=== PATIENT | female | born 1975 | race Caucasian/White ===

== ENCOUNTER → 2017-01-10 | Outpatient (CLI) | payer BC, OTHER ==
--- NOTE | 2017-01-11 13:16 | MAM ---
EXAM DESCRIPTION: 3D Screening BILATERAL CLINICAL HISTORY: 41 yearsFemaleSCREENING no complaints. No family history of breast cancer. Premenopausal. Current user of [employer]. COMPARISON: Baseline study at this facility. No prior reports available. TECHNIQUE: Bilateral digital screening. CC and MLO projection full-field, 2-D images. Bilateral Sunita implant displacement images, CC and MLO full-field projections, 3-D tomosynthesis. FINDINGS: The breast parenchymal density pattern is: Almost entirely fatty. Scattered areas of fibroglandular density. Heterogeneously dense breast tissue, which may obscure small masses. Extremely dense breast tissue, which lowers the sensitivity of mammography. No skin thickening or nipple retraction bilaterally. Bilateral subpectoral saline implants. Implant borders are intact where seen. Intramammary lymph node right axillary tail. Bilateral solitary microcalcifications. Focal asymmetry in the posterior third of the upper-outer quadrant of the right breast. 1000 clock position, approximately 3 cm from the skin surface and 6 cm from the nipple. Not associated with microcalcifications. No focal, stellate mass or density and no suspicious microcalcifications left breast. IMPRESSION: BI-RADS CATEGORY: 0 - INCOMPLETE- Need additional imaging evaluation. FOLLOW-UP: Recall for additional imaging: Targeted ultrasound of the region of interest in the posterior third of the upper-outer quadrant of the right breast. Written communication concerning the IMPRESSION and Follow-up, will be mailed to the patient and referring health care provider. Electronically signed by: Shawn Hdez MD 01/11/2017 1:14 PM CDT
== END | disposition home or self-care (01) ==
LOC: MAMMO 13:02
PROVIDERS: ATTEND Nurse Practitioner Family
DX: Z12.31 Encounter for screening mammogram for malignant neoplasm of breast (principal)
CPT/HCPCS: 77063; G0202

== ENCOUNTER → 2017-03-04 | Outpatient (CLI) | payer BC ==
--- NOTE | 2017-03-05 14:04 | US ---
EXAM DESCRIPTION: Breast,Right: Ultrasound CLINICAL HISTORY: 41 yearsFemaleABNORMAL MAMMO COMPARISON: Digital 3-D tomosynthesis screening bilateral breasts 01/10/2017. TECHNIQUE: Transcutaneous scanning of the upper outer quadrant right breast utilizing two-dimensional and Doppler modes. Scanning performed by the adoption social worker and Dr. Hdez. FINDINGS: Hypoechoic nodule nodule with minimal heterogeneity at the 1000 clock position of the upper outer quadrant of the right breast, 6 cm from the nipple. The nodule has parallel orientation relatively well-defined smooth borders and minimal or no posterior acoustic enhancement. Dimensions are 7.0 x 5.2 mm, and no significant vascularity. Most likely intramammary lymph node or fibroadenoma. No other discrete solid lesions or discrete cyst. No skin thickening or parenchymal edema. No large calcifications. IMPRESSION: BI-RADS CATEGORY: 3 - PROBABLY BENIGN. Management: Short interval (6-month) follow-up ultrasound and continued digital mammographic 6 month surveillance. The FINDINGS and the follow-up plan were reviewed in person with the patient after the examination. Written communication explaining the IMPRESSION and follow-up will be mailed to the patient and referring care provider. Electronically signed by: Shawn Hdez MD 03/05/2017 2:03 PM GOPHERMAN
== END | disposition home or self-care (01) ==
LOC: US 13:33
PROVIDERS: ATTEND Nurse Practitioner Family
DX: R92.8 Other abnormal and inconclusive findings on diagnostic imaging of breast (principal)

== ENCOUNTER → 2017-07-02 | Outpatient (CLI) | payer BC ==
--- NOTE | 2017-07-02 11:50 | MRI ---
EXAM: Cervical Spine HISTORY: CERVICAL RADICULOPATHY COMPARISON: None TECHNIQUE: Routine MRI protocol for cervical spine without intravenous contrast administration FINDINGS: Bony alignment at craniocervical and atlantooccipital junctions, including atlantoaxial interval, are maintained. There is maintained cervical lordosis. Vertebral heights are intact without compression injury. No spondylolysis nor spondylolisthesis is identified. Marrow signal characteristics are mildly heterogeneous without concerning edema to indicate acute/recent injury nor inflammation nor marrow infiltration. Facet joints demonstrate unremarkable alignment bilaterally. Spinous processes are intact. Cervical cord is morphologically unremarkable in appearance without focal expansile nor atrophic process, nor abnormal signal abnormality. Paraspinal soft tissue abnormality are within normal limits. At C2-3 level, disc height is maintained. Central canal and neuroforamen bilaterally are patent. At C3-4 level, disc height is maintained. Less than 1 mm of posterior disc herniation which subtly impact the ventral thecal margin without impacting the ventral cord. Central canal and neuroforamen bilaterally are patent. At C4-5 level, disc height is maintained. Central canal and neuroforamen bilaterally are patent. At C5-6 level, disc height is maintained. Approximately 1 mm of posterior disc extrusion broadly by minimally flatten the ventral thecal margin and slightly extending toward lateral recesses. Central canal and neuroforamen bilaterally are patent. At C6-7 level, disc height is maintained. Central canal and right neuroforamen are patent. Uncovertebral hypertrophy contributes to mild left neuroforaminal stenosis. As C7-T1 level, disc height is maintained. Central canal and neuroforamen bilaterally are patent. IMPRESSION: 1. No acute or recent bony injury in cervical spine 2. No extrinsic compression nor myelomalacia nor demyelination in the cervical cord. 3. Minimal posterior disc herniation or extrusion at C3-4 and C5-C6 levels. No significant associated central canal stenosis at these or other levels in cervical spine 4. Mild stenosis of left C6-7 neuroforamen Electronically signed by: Nam Duarte MD 07/02/2017 11:49 AM [facility]
--- NOTE | 2017-07-02 11:50 | MRI ---
Study: MRI of the Right Shoulder. Indication: SHOULDER PAIN Technique: Multiplanar, multi sequence MRI of the right shoulder was obtained without intravenous contrast. Comparison: None. Findings: Mild AC joint osteoarthritis. Type I acromion with mild lateral downsloping. Trace subacromial/subdeltoid bursal fluid. Supraspinatus and infraspinatus tendinosis and bursal surface fraying of both tendon insertions noted. Subtle articular fraying of the critical zone infraspinatus tendon. No full-thickness tear. No tendon retraction. Subscapularis tendinosis with low-grade interstitial fissuring superiorly. Teres minor tendon intact. Rotator cuff musculature normal without atrophy, fatty infiltration, or intramuscular edema. Intracapsular long head biceps tendinosis. Circumferential labral truncation superimposed on high-grade tearing bicipital labral anchor and superior labrum indicating a SLAP tear. No acute fracture or advanced glenohumeral joint osteoarthritis. Tiny joint effusion. Impression: Supraspinatus and infraspinatus tendinosis with bursal and articular fraying as above. No full-thickness tear. Intracapsular long head biceps tendinosis. Circumferential labral truncation with superimposed SLAP tear. Tiny glenohumeral joint effusion. Mild AC joint osteoarthritis. Electronically signed by: Virgil Hernandez MD 07/02/2017 11:45 AM [employer]
== END ==
LOC: MRI 10:05
PROVIDERS: ATTEND Family Medicine
DX: S43.431A Superior glenoid labrum lesion of right shoulder, initial encounter (principal); M19.011 Primary osteoarthritis, right shoulder; M48.02 Spinal stenosis, cervical region; M54.2 Cervicalgia

== ENCOUNTER → 2017-08-15 | Outpatient (CLI) | payer BC | LOC: GMAJ 14:18 | PROVIDERS: ATTEND Family Medicine | DX: B18.1 Chronic viral hepatitis B without delta-agent (principal) ==

== ENCOUNTER → 2018-01-28 | Outpatient (CLI) | payer BC ==
--- NOTE | 2018-01-28 21:03 | US ---
EXAM DESCRIPTION: Breast,Right: Ultrasound CLINICAL HISTORY: 42 yearsFemaleABN MAMMO, 6 MOS F/U COMPARISON: Digital diagnostic tomosynthesis bilateral breast on this visit. . Targeted right breast ultrasound 03/04/2017. TECHNIQUE: Transcutaneous scanning of the right breast utilizing burch-scale and Doppler modes. Scanning performed by the front desk associate and Dr. Hdez. FINDINGS: Scanning of the upper-outer quadrant of the right breast. Emphasis on the 10:00 position 6 cm from the nipple. Mostly heterogeneous fibroglandular and fatty echotexture. Again noted at the 10:00 position is a circumscribed hypoechoic mass measuring 7.4 x 5.6 mm with parallel orientation and mixed posterior features. No significant posterior shadowing. Small blood vessel abutting the mass which is most likely a fibroadenoma and is stable since the prior study. No other solid mass or distinct cyst. No large calcifications or parenchymal edema. No overlying skin changes. No abnormal vascularity. IMPRESSION: Benign fibroadenoma. ASSESSMENT: 1. Bi-Rads Category 2: Benign. 2. Please refer to digital diagnostic tomosynthesis bilateral breast examination and report on this visit.. The FINDINGS and the FOLLOW-UP plan were reviewed in person with the patient after the examination. Written communication explaining the IMPRESSION and FOLLOW-UP will be mailed to the patient and referring care provider. Electronically signed by: Shawn Hdez MD 01/28/2018 9:02 PM CDT
--- NOTE | 2018-01-30 09:06 | MAM ---
EXAM DESCRIPTION: 3D Diagnostic, Bilateral: Digital Mammography CLINICAL HISTORY: 42 yearsFemaleABN MAMMO, 6 MONTH F/U patient did not return for six-month follow-up. No complaints. No personal history or family history of breast cancer. Childbirth. Possible. Currently on Biote. Bilateral breast augmentation. Lifetime risk of developing breast cancer (Tyrer-Cuzick model) percentage was not calculated. COMPARISON: Digital screening bilateral breast tomosynthesis 01/10/2017. Targeted right breast ultrasound 03/04/2017. . TECHNIQUE: Bilateral CC LM MLO projection full-field images, with Sunita implant displacement images, digital mammographic tomosynthesis technique. Bilateral two-dimensional non-displacement images. CAD not utilized. FINDINGS: The breast parenchymal density pattern is: Heterogeneously dense breast tissue, which may obscure small masses. No skin thickening or nipple retraction lymph node in the right axillary tail. Focal asymmetry in the medial mid left breast is stable. No new focal, stellate mass or density, focal asymmetry , and no suspicious microcalcifications bilaterally. ULTRASOUND: Scanning of the lateral left breast with emphasis at the 3:00 position 8 cm from the nipple. Make sure of fibroglandular and fatty echotexture. Heterogeneous. Small ductal segments are present. No distinct solid mass or cyst. No parenchymal edema or large calcifications. No overlying skin changes. No abnormal vascularity. IMPRESSION: Benign fibroadenoma right breast is stable. ASSESSMENT: BIRAD CATEGORY: 2 BENIGN FINDINGS. RECOMMENDATIONS: FOLLOW UP: Routine digital bilateral screening, one year interval from January 2018. Repeat right breast ultrasound of the region of interest in January 2019. The FINDINGS and the FOLLOW-UP plan were reviewed in person with the patient after the examination. Written communication explaining the IMPRESSION and FOLLOW-UP will be mailed to the patient and referring care provider. According to the [employer], yearly mammograms are recommended starting at age 40 and continuing as long as a woman is in good health. Any breast change noted on a breast self-exam should be reported promptly to the patient's healthcare provider. Breast MRI is recommended for women with an approximately 20-25% or greater lifetime risk of breast cancer, including women with a strong family history of breast or ovarian cancer and women who have been treated for Hodgkin's disease. A negative mammographic report should not delay tissue diagnosis in patients with significant clinical history or physical findings. Extremely dense breast tissue limits the sensitivity of digital mammography. Electronically signed by: Shawn Hdez MD 01/30/2018 9:04 AM CDT
== END ==
LOC: MAMMO 14:10
PROVIDERS: ATTEND Family Medicine
DX: R92.8 Other abnormal and inconclusive findings on diagnostic imaging of breast (principal)
CPT/HCPCS: 76641; 77066; G0279

== ENCOUNTER → 2018-05-13 | Outpatient (CLI) | payer BC ==
--- NOTE | 2018-05-13 11:21 | US ---
EXAM DESCRIPTION: Abdomen,Complete: Ultrasound. CLINICAL HISTORY: RUQ PAIN COMPARISON: None Available. TECHNIQUE: Transabdominal scannin-dimensional and Doppler modes. FINDINGS: Gallbladder: No intraluminal stones or sludge. Wall thickening 3.8 mm is borderline abnormal. No fluid around the wall. Tender with transducer pressure. Common bile duct: 3.7 mm normal caliber. Liver: Heterogeneously increased echogenicity. Long axis of the right lobe 16.7 cm. No intrahepatic biliary dilatation. Normal caliber 1.2 cm, and hepatopedal flow of the portal vein. Smooth capsule with no ascites. Pancreas: Normal size and echogenicity.. Abdominal aorta: Normal caliber from the proximal segment to the distal bifurcation. IVC: visualized; normal caliber. Spleen normal echogenicity; long axis measurement is 10.6 cm. Right kidney: 10.6 cm long axis. Normal cortical thickness with smooth capsule. No hydronephrosis or perinephric fluid. Left kidney: 9.9 cm long axis. Normal cortical thickness with smooth capsule. No hydronephrosis or perinephric fluid. IMPRESSION: 1. Gallbladder wall thickened and nondistended. Tender with transducer pressure. Most likely acalculus cholecystitis. Small percentage of gallstones not visible with ultrasound. Consider radionuclide hepatobiliary imaging to evaluate gallbladder function. No ascites. Common bile duct normal caliber. 2. Steatosis of the liver with borderline enlargement of the right lobe. Normal intrahepatic ducts and vascularity. Smooth capsule. 3. Pancreas spleen and IVC are unremarkable. Negative findings in the bilateral kidneys. Electronically signed by: Shawn Hdez MD 05/13/2018 11:20 AM STEAM FLATTENER
== END ==
LOC: US 08:09
PROVIDERS: ATTEND Family Medicine
DX: R10.84 Generalized abdominal pain (principal); R10.11 Right upper quadrant pain; K81.9 Cholecystitis, unspecified; K76.0 Fatty (change of) liver, not elsewhere classified

== ENCOUNTER → 2019-03-03 | Outpatient (CLI) | payer BC ==
--- NOTE | 2019-03-05 09:39 | MAM ---
EXAM DESCRIPTION: 3D Screening BILATERAL : Digital Mammography. CLINICAL HISTORY: 43 years Female SCREENING no complaints. No personal or family history of breast cancer. Menarche age 18. Childbirth age 31. Premenopausal. Currently on testosterone.. Lifetime risk of developing breast cancer (Tyrer-Cuzick model)(%): 12.4. COMPARISON: Bilateral screening digital breast tomosynthesis 10 January 2017 bilateral diagnostic digital breast tomosynthesis second of January 2018 with dedicated right breast ultrasound on the same visit. TECHNIQUE: Bilateral CC and MLO projection full-field images, with Sunita Implant Displacement digital tomosynthesis mammographic technique. Bilateral 2-D digital full-field images, MLO and CC projections, non-displaced. Bilateral digital 2-D full-field MLO images. With implant displaced. CAD not available for tomosynthesis or 2-D images. FINDINGS: The breast parenchymal density pattern is: Heterogeneously dense breast tissue, which may obscure small masses. No skin thickening or nipple retraction. . Small retroglandular saline implants bilaterally. Capsules appear intact where seen. Solitary scattered bilateral microcalcifications. Skin calcifications inferior anterior aspect of the anterior left breast. No new focal, stellate mass or density, focal asymmetry , and no suspicious microcalcifications bilaterally. Stable mammograms compared to prior study. IMPRESSION: Benign exam. BIRAD CATEGORY: 2 BENIGN FINDINGS. RECOMMENDATIONS: FOLLOW UP: Routine digital bilateral mammographic screening, one year interval from February 2019. Written communication explaining the IMPRESSION and follow-up, will be mailed to the patient and referring health care provider. According to the [employer], yearly mammograms are recommended starting at age 40 and continuing as long as a woman is in good health. Any breast change noted on a breast self-exam should be reported promptly to the patient's healthcare provider. Breast MRI is recommended for women with an approximately 20-25% or greater lifetime risk of breast cancer, including women with a strong family history of breast or ovarian cancer and women who have been treated for Hodgkin's disease. A negative mammographic report should not delay tissue diagnosis in patients with significant clinical history or physical findings. Extremely dense breast tissue limits the sensitivity of digital mammography. Electronically signed by: Shawn Hdez MD 03/05/2019 9:37 AM PROPERTY WORKER
== END ==
LOC: MAMMO 09:18
PROVIDERS: ATTEND Family Medicine
DX: Z12.31 Encounter for screening mammogram for malignant neoplasm of breast (principal)

== ENCOUNTER → 2020-03-01 | Outpatient (CLI) | payer BC | LOC: GMAJ 16:35 | PROVIDERS: ATTEND Family Medicine | DX: F41.1 Generalized anxiety disorder (principal) ==

== ENCOUNTER → 2020-03-09 | Outpatient (CLI) | payer BC | LOC: GMAJ 16:37 | PROVIDERS: ATTEND Family Medicine | DX: R53.82 Chronic fatigue, unspecified (principal) ==

== ENCOUNTER → 2020-03-28 | Outpatient (CLI) | payer BC ==
--- NOTE | 2020-03-30 14:36 | MAM ---
EXAM DESCRIPTION: 3D Screening BILATERAL : Digital Mammography. CLINICAL HISTORY: 44 years Female screening . No complaints. No family history breast cancer. Menarche age 17. Childbirth age 31. Premenopausal. No HRT. Bilateral breast augmentation. Lifetime risk of developing breast cancer (Tyrer-Cuzick model)(%): 12.1. COMPARISON: Bilateral screening digital breast tomosynthesis February 2019 and bilateral diagnostic digital breast tomosynthesis January 2018. TECHNIQUE: Bilateral CC and MLO projection full-field images, with Sunita Implant Displacement digital tomosynthesis mammographic technique. Bilateral 2-D digital full-field images, MLO and CC projections, non-displaced. Bilateral digital 2-D full-field MLO images. Sunita technique. CAD available for 2-D images. FINDINGS: The breast parenchymal density pattern is: Heterogeneously dense breast tissue, which may obscure small masses. Axillary nodes. Bilateral subpectoral implants. Stable position. Capsules appear intact where seen. Solitary microcalcifications. Medial left breast skin calcifications. Stable focal asymmetry lateral left breast. No skin thickening or nipple retraction No new focal, stellate mass or density, focal asymmetry , and no suspicious microcalcifications bilaterally. Stable mammograms compared to prior study. IMPRESSION: Benign exam. BIRAD CATEGORY: 2 BENIGN FINDINGS. RECOMMENDATIONS: FOLLOW UP: Routine digital bilateral mammographic screening, one year interval from March 2020. Written communication explaining the IMPRESSION and follow-up, will be mailed to the patient and referring health care provider. According to the [employer], yearly mammograms are recommended starting at age 40 and continuing as long as a woman is in good health. Any breast change noted on a breast self-exam should be reported promptly to the patient's healthcare provider. Breast MRI is recommended for women with an approximately 20-25% or greater lifetime risk of breast cancer, including women with a strong family history of breast or ovarian cancer and women who have been treated for Hodgkin's disease. A negative mammographic report should not delay tissue diagnosis in patients with significant clinical history or physical findings. Extremely dense breast tissue limits the sensitivity of digital mammography. Electronically signed by: Shawn Hdez MD 03/30/2020 2:35 PM PIT LAB[employer]ER
== END ==
LOC: MAMMO 11:05
PROVIDERS: ATTEND Family Medicine
DX: Z12.31 Encounter for screening mammogram for malignant neoplasm of breast (principal)